=== PATIENT | male | born 1960 | race Caucasian/White ===

== ENCOUNTER 2017-10-24 14:09 | Emergency (ER) | payer OTHER ==
[~2017-10-24] VITALS: Ht 175.3 cm; Wt 97.1 kg
[2017-10-24 14:15] VITALS: BP 126/73
[2017-10-24] MEDS ORDERED: LOSA50TA68 PO (14:15)
[2017-10-24] MEDS ORDERED: HYDR-2966 PO (14:15)
[2017-10-24] MEDS ORDERED: DIPHTH/TETANUS/ACEL. PERTUSSIS IM ONLY ONE (14:20)
--- NOTE | 2017-10-24 14:26 | ER Report ---
History and Physical Time Seen By MD: 14:26 Hx. of Stated Complaint: SMASHED LEFT MIDDLE FINGER. 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 initially went to [facility] who sent him to er as they felt the tip was dusky. nailbed with hematoma . laceration past nail matrix. tip of finger is pink some bruising around base of nail bed. laceration 1 inch dorsal hand dip . ligaments remain intact Allergies: Coded Allergies: Penicillins (Verified Allergy, Intermediate, HIVES, 10/24/17) Sulfa (Sulfonamide Antibiotics) (Verified Allergy, Intermediate, HIVES, ) Home Meds Active Scripts Hydrocodone Bit/Acetaminophen (NORCO 5-325 TABLET) 1 Each Tablet, 1 EACH PO Q4- 6H Y for PAIN, #40 TAB Prov:CE HOLLOWAY 10/24/17 Cephalexin 500 Mg Tab (KEFLEX 500 MG TAB) 500 Mg Tablet, 500 MG PO Q6H, #40 TAB Prov:CE HOLLOWAY 10/24/17 Reported Medications Losartan Potassium (COZAAR) 50 Mg Tablet, 50 MG PO QDAY 10/24/17 Hydrochlorothiazide (HYDROCHLOROTHIAZIDE) 25 Mg Tablet, 1 TAB PO QDAY, TAB 10/24/17 Past Medical/Surgical History Hypertension Reviewed Nurses Notes: No Old Medical Records Reviewed: No Hx Smoking: No Exposure to Second Hand Smoke?: No Hx Substance Use Disorder: No Hx Alcohol Use: No Constitutional Vital Sign - Last 24 Hours 10/24/17 14:15 Temp 97.7 Pulse 68 Resp 20 B/P (MAP) 126/73 Pulse Ox 95 O2 Delivery Room Air Physical Exam alert and oriented and . refuses pain med, hrr lungs cta, abdomen soft, left hand crush injury left vj dip left 4th finger 1 inch, matrix of nailbed preserved subungual hematoma , tendons intact, tip of finger pink Medical Decision Making EKG/Imaging Imaging FACILITY: [facility] PATIENT NAME: Mitchell Foreman : 1960 MR: [id number] V: [id number] EXAM DATE: ORDERING PHYSICIAN: CE HOLLOWAY TECHNOLOGIST: Location: [facility] Patient: Mitchell Foreman : 1960 Visit/Account:[id number] Date of Sevice: 10/24/2017 INDICATION: crush injury with concrete. DATE: 10/24/2017 2:43 PM. TECHNIQUE: FINGER LEFT 3RD DIGIT COMPARISON: None FINDINGS: A fracture at the tuft of distal phalanx of the third digit is comminuted with multiple displaced fragments. There is also fracture at the base of the distal phalanx on the dorsal side. Soft tissues are irregular in keeping with a crush injury. IMPRESSION: Fractures of the distal phalanx of the third digit as above. Report Dictated By: Mele Whiteside MD at 10/24/2017 2:43 PM Report E-Signed By: Mele Whiteside MD at 10/24/2017 2:45 PM WSN:[id number] ED Course/Re-evaluation ED Course digital block 3rd finger 4 cc 1% lidocaine, good anesthesia, irrigated 2 liters ns with 10 cc betadyne each liter, nail bed cauterized drained hematoma, hand cleansed with betadyne, prepped sterilely, 4-0 nylon 8 sutures, , surgicel, xeroform, tube gauze, splint Re-evaluation will start keflex he had a penicillin reaction as a child, believes he has had keflex Procedure see ed course home with xiao vang, discussed with dr chan and they will follow in ortho Decision to Disposition Date: Oct 24, 2017 Decision to Disposition Time: 16:13 Depart Departure Latest Vital Signs Vital Signs Date Time Temp Pulse Resp B/P (MAP) Pulse Ox O2 Delivery O2 Flow Rate FiO2 10/24/17 14:15 97.7 68 20 126/73 95 Room Air Impression: Primary Impression: Crush fracture Condition: Improved Disposition: HOME OR SELF-CARE Referrals: [facility] 2 Days New Scripts Hydrocodone Bit/Acetaminophen (NORCO 5-325 TABLET) 1 Each Tablet 1 EACH PO Q4-6H Y for PAIN, #40 TAB Prov: CE HOLLOWAY 10/24/17 Cephalexin 500 Mg Tab (KEFLEX 500 MG TAB) 500 Mg Tablet 500 MG PO Q6H, #40 TAB Prov: CE HOLLOWAY 10/24/17 Patient Instructions: Crush Injury (ED) CE HOLLOWAY Oct 24, 2017 14:26
--- NOTE | 2017-10-24 14:48 | RADIOLOGY IMAGING REPORT ---
FACILITY: [facility] [place] PATIENT NAME: Mitchell Foreman : 1960 MR: [id number] V: [id number] EXAM DATE: ORDERING PHYSICIAN: CE HOLLOWAY TECHNOLOGIST: Location: [facility] [place] Patient: Mitchell Foreman : 1960 Visit/Account:[id number] Date of Sevice: 10/24/2017 INDICATION: crush injury with concrete. DATE: 10/24/2017 2:43 PM. TECHNIQUE: FINGER LEFT 3RD DIGIT COMPARISON: None FINDINGS: A fracture at the tuft of distal phalanx of the third digit is comminuted with multiple dis placed fragments. There is also fracture at the base of the distal phalanx on the dorsal side. Soft t issues are irregular in keeping with a crush injury. IMPRESSION: Fractures of the distal phalanx of the third digit as above. Report Dictated By: Mele Whiteside MD at 10/24/2017 2:43 PM Report E-Signed By: Mele Whiteside MD at 10/24/2017 2:45 PM WSN:[id number]
[2017-10-24] MEDS ORDERED: HYDR-4309 PO (15:12)
[2017-10-24] MEDS ORDERED: CEPH500T7 PO (15:12)
== END 2017-10-24 15:41 | disposition home or self-care (01) ==
LOC: ER 14:10
DX: S62.663A Nondisplaced fracture of distal phalanx of left middle finger, initial encounter for closed fracture (principal); W23.0XXA Caught, crushed, jammed, or pinched between moving objects, initial encounter
CPT/HCPCS: 90471; 90715; 99282